=== PATIENT | male | born 1970 | race Caucasian/White ===

== ENCOUNTER 2019-09-04 10:54 | Emergency (ER) | payer OTHER ==
[~2019-09-04] VITALS: Ht 182.9 cm; Wt 122.7 kg
[~2019-09-04 10:54] MED LIST: AMBIEN CR 12.12.5 MG PO; CRESTOR 10MG10 MG PO; LEXAPRO20 MG PO; SINGULAIR 110 MG/TAB PO; TAMBOCOR150 MG PO; TOPROL XL 50MG50 MG PO; VITAMIN D31000 I1 PO; ZYRTEC 10MG10 MG PO
[2019-09-04 11:03] VITALS: TEMP 98.3
[2019-09-04] MEDS ORDERED: TYLENOL 500MG500 MG PO (11:17)
[2019-09-04] MEDS ORDERED: TUSS PO ×3 (14:11→14:17)
[2019-09-04] MEDS ORDERED: LEVAQUIN 750MG750 M1 PO (14:11)
[2019-09-04] MEDS ORDERED: DECADRON 4MG TAB4 MG PO (15:02)
[2019-09-04 15:28] VITALS: BP 134/90; PULSE 90
== END 2019-09-04 15:28 | disposition home or self-care (01) ==
LOC: COL.ER 10:54
DX: J20.9 Acute bronchitis, unspecified (principal)
CPT/HCPCS: J1885; J8540

== ENCOUNTER → 2020-01-16 | Outpatient (CLI) | payer OTHER ==
[~2020-01-16] MED LIST changes: +DECADRON 4MG TAB4 MG PO; +LEVAQUIN 750MG750 M1 PO; +TUSS PO; +TYLENOL 500MG500 MG PO
[2020-01-16 11:40] LABS: HEMOGLOBIN 15.8 g/dl (13.5-18.0); MEAN CELL VOLUME 90 fl (80.0-100.0); MEAN CORPUSCULAR HEMOGLOBIN 31 pg (27.0-31.0); MEAN CORPUSCULAR HGB CONC 34 g/dl (33.0-37.0); MEAN PLATELET VOLUME 10.6 fl (7.4-10.4); PLATELET COUNT 268 K/mm3 (130-400); RED BLOOD COUNT 5.14 M/mm3 (4.20-5.60); REDCELL DISTRIBUTION WIDTH-CV 12.7 % (11.5-14.5)
[2020-01-16 11:53] LABS: CALCIUM 8.9 mg/dL (8.4-10.2); CREATININE, serum 1.04 (0.66-1.25); POTASSIUM 4.2 mmol/L (3.4-5.0)
== END ==
LOC: COL.LAB 09:42
PROVIDERS: Internal Medicine Interventional Cardiology
DX: Z01.812 Encounter for preprocedural laboratory examination (principal)

== ENCOUNTER 2024-02-11 11:24 | Day surgery (SDC) | payer OTHER ==
[~2024-02-11] VITALS: Ht 182.9 cm; Wt 119.3 kg
[~2024-02-11 11:24] MED LIST changes: +LR 1,000 ML IV SCH
[2024-02-11] MEDS ORDERED: CARDIZEM120 MG PO (11:47)
[2024-02-11] MEDS ORDERED: MINIPRESS2 MG PO (11:47)
[2024-02-11] MEDS ORDERED: XYOSTED100 MG/0.5 SQ (11:48)
[2024-02-11] MEDS ORDERED: COZAAR100 MG PO (11:49)
[2024-02-11] MEDS ORDERED: PROZAC 10MG10 MG PO (11:49)
[2024-02-11 12:51] VITALS: BP 129/86; PULSE 71; TEMP 97.4
[2024-02-11] MEDS ORDERED: Lidocaine PF 2% (20 MG/ML) 5 ML VIAL ONE (13:55)
[2024-02-11] MEDS ORDERED: fentaNYL 50 MCG/ML 5 ML VIAL ONE (13:55)
[2024-02-11] MEDS ORDERED: NORCO 325 MG-51 TAB PO (14:16)
[2024-02-11] MEDS ORDERED: MOTRIN 600600 MG/TAB PO (14:16)
[2024-02-11] MEDS ORDERED: Topical Skin Adhesive 1 EACH (1 ML) TOP ONE (14:45)
[2024-02-11] MEDS ORDERED: Lidocaine PF 2% (20 MG/ML) 5 ML VIAL SQ ONE ×2 (14:45)
[2024-02-11] MEDS ORDERED: HYDROmorphone 1 MG/1 ML SYRINGE [PACU/SDC ONLY] IV PRN (15:00)
[2024-02-11] MEDS ORDERED: Ondansetron 4 MG/2 ML VIAL IV PRN ×2 (15:00→15:45)
[2024-02-11] MEDS ORDERED: fentaNYL 50 MCG/ML 1 ML SYRINGE/VIAL [PACU/SDC ONLY] IV PRN (15:00)
[2024-02-11] MEDS ORDERED: Ketorolac 30 MG/ML VIAL ONE (15:02)
[2024-02-11] MEDS ORDERED: Ondansetron 4 MG/2 ML VIAL ONE (15:02)
[2024-02-11 15:33] VITALS: BP 112/74; PULSE 64; TEMP 96.9
--- NOTE | 2024-02-11 15:33 | NUR ---
PATIENT RETURNED TO BAY 7 DROWSY AND ORIENTED X3. DENIES PAIN, NAUSEA AND SHORTNESS OF BREATH. BREATHING REGULAR AND UNLABORED ON 6L VIA OXYMASK. SKIN WARM AND DRY. NURSE HANDOFF COMPLETED IN ROOM BY YINKA HOGAN AND VASHTI LIGHT CRNA. SURGICAL INCISION BELOW UMBILICUS WITH SKIN GLUE CLOSURE-CLEAN, DRY AND INTACT. SURROUNDING SKIN INTACT. PATIENT HAS NO COMPLAINTS AND REQUESTED TO REST. CALL LIGHT IN REACH. SPOUSE, CIARA, PRESENT IN ROOM.
[2024-02-11 15:45] VITALS: BP 117/73; PULSE 63
[2024-02-11] MEDS ORDERED: Ibuprofen 600 MG TAB PO PRN (15:45)
[2024-02-11] MEDS ORDERED: Morphine 4 MG/ML VIAL IV PRN (15:45)
--- NOTE | 2024-02-11 15:50 | NUR ---
PATIENT AWAKE AND ALERT. DENIES PAIN, NAUSEA AND SHORTNESS OF BREATH. BREATHING REGULAR AND UNLABORED ON ROOM AIR. PATIENT HAD LARISA CRACKERS AND APPLE JUICE. BOTH FOOD AND DRINK TOLERATED WELL.
[2024-02-11 16:00] VITALS: BP 119/79; PULSE 64
[2024-02-11 16:15] VITALS: BP 126/78; PULSE 70
--- NOTE | 2024-02-11 16:21 | NUR ---
1612: DISCHARGE TEACHING COMPLETED WITH PRINTED EDUCATION AND INSTRUCTIONS SENT HOME WITH PATIENT. PATIENT VERBALIZED UNDERSTANDING. 1615: PATIENT DENIES PAIN. SURGICAL INCISION CLEAN AND DRY WITH SKIN GLUE INTACT. IV REMOVED. GAUZE AND COBAN PLACED OVER SITE. 1621: PATIENT CHANGED INTO PERSONAL CLOTHING AND DISCHARGED HOME WITH SPOUSE, CIARA, TRANSPORT.
== END 2024-02-11 16:21 | disposition home or self-care (01) ==
LOC: SDCO 11:24
DX: K42.9 Umbilical hernia without obstruction or gangrene (principal); Z85.828 Personal history of other malignant neoplasm of skin; Z86.718 Personal history of other venous thrombosis and embolism; G47.33 Obstructive sleep apnea (adult) (pediatric)
CPT/HCPCS: C1781; J0690; J1885; J2405; J2704; J3010; J7120